=== PATIENT | female | born 1975 | race Caucasian/White ===

== ENCOUNTER 2022-06-29 13:06 | Emergency (ER) | payer OTHER, SELFPAY ==
[2022-06-29] VITALS (19 sets, daily range): BP systolic 125–139; BP diastolic 81–101; PULSE 81–99; RESP 15–23; TEMP 36.6; O2SAT 87–100
--- NOTE | ~2022-06-29 | XR_ITS ---
EXAMINATION: XR chest 2V DATE: 06/29/2022 15:16 INDICATION: Posterior chest pain. Nausea. TECHNIQUE: Frontal and lateral views of the chest were obtained. COMPARISON: None. FINDINGS: The chest demonstrates clear lungs without pneumonia, pleural effusion, or pneumothorax. Th e heart size is normal. Surgical clips in the right upper quadrant are likely from cholecystectomy. IMPRESSION: 1. No acute cardiopulmonary disease. Reviewed, dictated and finalized at location A.
--- NOTE | 2022-06-29 13:58 | ECG_ITS ---
Measurements Intervals Icard Rate: 88 P: 48 TN: 145 QRS: 27 QRSD: 93 T: 39 QT: 346 QTc: 420 Interpretive Statements SINUS RHYTHM BASELINE ARTIFACT- I, III, AVL NORMAL ECG NO PREVIOUS ECG AVAILABLE FOR COMPARISON Electronically Signed On 06-29-2022 14:24:50 CDT by Cameron Morgan D.O.
[2022-06-29 14:16] LABS: Basophils Percent Auto 0.2 % (0.2-1.2); Eosinophils Absolute Auto 0.1 K/mm3 (0-0.3); Hematocrit 37.8 % (37.0-47.0); Hemoglobin 12.1 g/dL (12.0-15.0); Immature Granulocyte Absolute 0.01 K/mm3 (0.00-0.031); Immature Granulocyte Percent A 0.2 % (0-0.5); Lymphocytes Absolute Auto 1.94 K/mm3 (0.9-3.2); Lymphocytes Percent Auto 31.2 % (18.3-44.2); Mean Corpuscular Hemoglobin 28.1 pg (26-34); Mean Corpuscular Volume 87.7 fl (80-100); Mean Platelet Volume 12.2 fl (7.4-10.4); Monocytes Absolute Auto 0.4 K/mm3 (0.1-0.6); Monocytes Percent Auto 6.8 % (2.6-8.5); Neutrophils Absolute Auto 3.8 K/mm3 (1.3-6.7); Neutrophils Percent Auto 60.6 % (45.5-73.1); Platelet Count Result 199 k/mm3 (150-375); Red Blood Count 4.31 M/mm3 (4.2-5.4); Red Cell Distribution Width 15.2 % (11.5-14.5); White Blood Count 6.2 K/mm3 (4.5-10.0)
[2022-06-29 14:24] LABS: Prothrombin Time 13.1 Seconds (11.1-14.7)
[2022-06-29 14:26] LABS: Partial Thromboplastin Time 24.5 SECONDS (22.3-36.8)
[2022-06-29 14:28] LABS: Alanine Aminotransferase 23 U/L (6-35); Albumin Level 4.4 g/dL (3.5-5.1); Alkaline Phosphatase 39 U/L (38-126); Anion Gap 6 mmol/L (8-16); Aspartate Amino Transferase 24 U/L (14-36); Bilirubin,Total 0.4 mg/dL (0.2-1.3); Blood Urea Nitrogen 11 mg/dL (7-17); Calcium 8.9 mg/dL (8.4-10.2); Carbon Dioxide 28 mmol/L (22-30); Chloride 103 mmol/L (98-107); Estimated CRCL calculation 108 ml/min; Estimated Glomerular Filt Rate > 60; Glucose 107 mg/dL (65-110); Lipase 89 U/L (23-300); Potassium 3.7 mmol/L (3.4-5.0); Sodium 137 mmol/L (137-145)
[2022-06-29 14:36] LABS: Troponin I < 0.012 ng/mL (0.000-0.034)
--- NOTE | 2022-06-29 19:35 | ED.GENADULT ---
HPI - General Adult General Chief complaint: Recheck/Abnormal Lab/Rx <ROBERT Méndez Last Filed: 06/30/22 01:38> Stated complaint: high blood pressure <ROBERT Méndez Last Filed: 06/30/22 01:38> Time Seen by Provider: 06/29/22 18:53 <ROBERT Méndez Last Filed: 06/30/22 01:38> Source: patient <ROBERT Méndez Last Filed: 06/30/22 01:38> Mode of arrival: ambulatory <ROBERT Méndez Last Filed: 06/30/22 01:38> Limitations: no limitations <ROBERT Méndez Last Filed: 06/30/22 01:38> History of Present Illness HPI narrative: This is a 46-year-old female with no pertinent PMH who presents to the ED with chief complaint of hypertension x2 days. Patient states she has been taking her blood pressure at home and noticed that it was in the 140s over 100s and wanted to be evaluated further. States that her father of a heart attack at 73 and his feeling anxious about her heart. Patient reports that she not been feeling herself. Reports feeling lightheaded and nauseous. Also reports a discomfort in the left side of the chest that goes up into the left side of the neck and back. States it is very mild and intermittent the past day. She states it seems to be worse in certain positions. Denies fevers, chills, shortness of breath, abdominal pain, vomiting, diarrhea, urinary symptoms. <ROBERT Méndez Last Filed: 06/30/22 01:38> Related Data Allergies/adverse reactions: Allergies Allergy/AdvReac Type Severity Reaction Status Date / Time No Known Allergies Allergy Verified 06/29/22 19:53 <ROBERT Méndez Last Filed: 06/30/22 01:38> Review of Systems Review of Systems: CONSTITUTIONAL: Denies fever, chills, or sweats. EYES: Denies visual changes, redness, or discharge. ENT: Denies rhinorrhea, congestion, sore throat, or otalgia. CARDIOVASCULAR: See HPI RESPIRATORY: Denies cough or dyspnea. GASTROINTESTINAL: Denies abdominal pain, nausea, vomiting, or diarrhea. GENITOURINARY: Denies dysuria or hematuria. SKIN: Denies rash or itching. MUSCULOSKELETAL: Denies back pain, joint pain, or myalgia. NEUROLOGIC: Denies headache, numbness, dizziness, or weakness. PSYCHIATRIC: Denies anxiety or depression. <Pablito Wheeler PA-C - Last Filed: 06/30/22 01:38> Exam Narrative: GENERAL: Well-appearing, well-nourished, and in no acute distress. HEAD: Normocephalic, atraumatic. EYES: PERRLA and EOMI. ENT: Nares clear, no rhinorrhea or epistaxis. Mucous membranes moist. Oropharynx without tonsillar hypertrophy exudate or other lesions. NECK: Supple. No adenopathy or masses. CHEST: Reproducible chest wall tenderness present on the left side. No respiratory distress. Clear to auscultation. No wheezes rales or rhonchi. HEART: Regular rate and rhythm. No murmur heard. Normal peripheral pulses. ABDOMEN: Soft, nontender, nondistended, normal active bowel sounds. EXTREMITIES/SPINE: Reproducible left trapezius tenderness. MSK exam is otherwise benign. Normal range of motion. No edema. SKIN: Warm, dry, no rash. NEURO: Alert and oriented x3. No focal deficits. PSYCH: Normal mood and affect. <Pablito Wheeler PA-C - Last Filed: 06/30/22 01:38> Course [employer]ANT/PA Physician Supervision This is a was performed by both a physician and an APC. I performed all aspects of the MDM as documented w/ the following additions: 46-year-old presenting with concerns about her blood pressure. Workup was negative. Patient is discharged primary care follow-up.All questions answered. Patient in agreement w/ disposition. <Alex Hanks MD - Last Filed: 07/04/22 07:14> Vital Signs Vital signs: Vital Signs Temperature 97.9 F 06/29/22 13:52 Pulse Rate 92 06/29/22 13:52 Respiratory Rate 16 06/29/22 13:52 Blood Pressure 139/92 H 06/29/22 13:52 Pulse Oximetry 100 06/29/22 13:52 Oxygen Delivery Room Air 06/29/22 13:52 Temperature
[2022-06-29] MEDS: ACETAMINOPHEN 500 MG TABLET 1000 MG PO (19:51)
[2022-06-29] MEDS: IBUPROFEN 400 MG TABLET 800 MG PO (19:51)
[2022-06-29] MEDS: SODIUM CHLORIDE 0.9% IV 1,000 ML 999 ML IV CONT (19:52)
[2022-06-29] MEDS: ONDANSETRON INJ 4 MG/2 ML VIAL IV PUSH (19:52)
[2022-06-29] MEDS: Please add drug allergy info to patient profile. 1 EACH XX (19:54)
[2022-06-29 21:11] LABS: Troponin I < 0.012 ng/mL (0.000-0.034)
== END 2022-06-29 21:30 | disposition home or self-care (01) ==
PROVIDERS: Emergency Medicine; Emergency Provider Physician Assistant; PCP Family Medicine
DX: I10 Essential (primary) hypertension (principal)
CPT/HCPCS: 36415; 71046; 80053; 83690; 84484; 85025; 85610; 85730; 93005; 96361; 96374; 99284; A9270; J2405; J7030

== ENCOUNTER → 2022-11-30 08:48 | Outpatient (CLI) | payer OTHER, SELFPAY ==
--- NOTE | ~2022-11-30 | MR_ITS ---
EXAMINATION: MR knee LT wo con DATE: 11/30/2022 09:18 INDICATION: Acute lateral meniscal tear at the left knee TECHNIQUE: Magnetic resonance imaging (MRI) of the left knee was performed without intravenous contra st. Sequences included coronal PD-weighted FSE, coronal PD-weighted FS FSE, sagittal T2-weighted FSE , sagittal PD-weighted FS FSE and axial PD weighted fat saturated FSE. COMPARISON: None. FINDINGS: Medial compartment: Medial meniscus is normal. Articular cartilage is normal. Lateral compartment: Lateral meniscus is normal. Articular cartilage is normal. Patellofemoral compartment: A couple deep chondral fissures without degenerative subchondral changes at the medial patellar facet . Trochlear cartilage is normal. Ligaments and tendons: Anterior and posterior cruciate ligaments are normal. The medial collateral ligament and fibular joshua ateral ligament complex are normal. The extensor mechanism is normal. The visualized medial and later al hamstring tendons as well as the iliotibial band are normal. Fluid: Physiologic amount of fluid in the joint space. No loose osteochondral bodies identified. Osseous/other: Normal marrow signal. No fracture or pathologic marrow replacing process. There is focal mild edema a t the infrapatellar fat pad situated between the lateral patellar facet and lateral trochlea which ca n be seen with fat pad impingement syndrome. IMPRESSION: 1. 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 Normal me nisci, stabilizing ligaments and femoral and tibial cartilage. 2. Mild edema in the lateral infrapatellar fat pad consistent with fat pad impingement syndrome. Reviewed, dictated and finalized at location A. IMPRESSION: 1. Moderate grade chondromalacia with deep chondral fissuring at the medial pat ellar facet. Normal menisci, stabilizing ligaments and femoral and tibial carti sulema. 2. Mild edema in the lateral infrapatellar fat pad consistent with fat pad impi ngement syndrome.
== END ==
PROVIDERS: PCP Family Medicine; Visit Provider Physician Assistant
DX: S83.282A Other tear of lateral meniscus, current injury, left knee, initial encounter (principal); X58.XXXA Exposure to other specified factors, initial encounter
CPT/HCPCS: 73721